=== PATIENT | male | born 1960 | race Caucasian/White ===

== ENCOUNTER → 2018-01-23 | Outpatient (CLI) | payer OTHER ==
[~2018-01-23] MED LIST: ASPI81TA28 PO; BUPR75TA20 PO; CHOL100027 PO; INSDGI SC; INSUINJ14 SC; MAGN250T3 PO; MULT-506 PO; PROT1POW PO; SIMV20TA5 PO
== END | disposition home or self-care (01) ==
LOC: C.LAB 07:59
PROVIDERS: ATTEND Nurse Practitioner Family
DX: R53.83 Other fatigue (principal)